=== PATIENT | female | born 1945 | race Caucasian/White ===

== ENCOUNTER → 2024-09-03 07:08 | Outpatient (REF) | payer MEDICARE, OTHER, SELFPAY ==
[2024-09-03 08:32] LABS: % Basophils 0.9 % (0-2); % Eosinophils 4.5 % (0-6); % Immature Granulocytes 0.3 % (0-0.5); % Lymphocytes 33.7 % (20.5-51.1); % Monocytes 9.7 % (1.7-9.3); % Neutrophils 50.9 % (42.2-75.2); Absolute Basophils 0.1 10^3/uL (0-0.2); Absolute Eosinophils 0.3 10^3/uL (0-0.7); Absolute Lymphocytes 2.2 10^3/uL (1.2-3.4); Absolute Monocytes 0.6 10^3/uL (0.1-0.6); Absolute Neutrophils 3.3 10^3/uL (1.4-6.5); Hemoglobin 14.8 g/dL (12.0-16.0); Mean Corp Hgb Conc. 34.4 g/dL (33.0-37.0); Mean Corpuscular Hgb 31.1 pg (27.0-31.0); Mean Corpuscular Volume 90.3 fL (81.0-99.0); Mean Platelet Volume 12.6 fL (7.4-10.4); Nucleated Red Blood Cells % 0 %; Platelet Count 210 10^3/uL (130-400); Red Blood Cell Count 4.76 10^6/uL (4.20-5.40); Red Cell Dist. Width 12.7 % (11.5-14.5); White Blood Cell Count 6.5 10^3/uL (4.8-10.8)
[2024-09-03 09:04] LABS: ALT (SGPT) 32 U/L (0-35); AST (SGOT) 36 U/L (14-36); Albumin 4.2 g/dl (3.5-5.0); Alkaline Phosphatase 119 U/L (38-126); Blood Urea Nitrogen 31 mg/dl (7-17); Calcium 9.9 mg/dl (8.4-10.2); Carbon Dioxide 29 mmol/L (22-30); Chloride 103 mmol/L (98-107); Glucose 97 mg/dl (70-99); HDL Cholesterol 100 mg/dl; LDL Cholesterol, Calculated 98 mg/dl; Potassium 4.6 mmol/L (3.5-5.1); Sodium 140 mmol/L (135-145); Total Bilirubin 0.5 mg/dl (0.2-1.3); Total Cholesterol 209 mg/dl (50-199); Total Protein 6.9 g/dl (6.3-8.2); Triglyceride 59 mg/dl (10-149); Very Low Density Lipoprotein 11 mg/dl (0-30); eGFR > 60.00
[2024-09-03 09:27] LABS: TSH Reflex To Free T4 5.14 uIU/ml (0.47-4.68)
[2024-09-03 09:56] LABS: Free T4 0.95 ng/dl (0.78-2.19)
== END ==
LOC: REG 07:08
PROVIDERS: ATTENDING PHYSICIAN Internal Medicine
DX: R03.0 Elevated blood-pressure reading, without diagnosis of hypertension (principal); I10 Essential (primary) hypertension; E78.00 Pure hypercholesterolemia, unspecified
CPT/HCPCS: 36415; 80053; 80061; 84439; 84443; 85025

== ENCOUNTER → 2024-09-17 13:10 | Outpatient (REF) | payer MEDICARE, OTHER, SELFPAY | LOC: WDC 13:10 | PROVIDERS: ATTENDING PHYSICIAN Internal Medicine | DX: Z12.31 Encounter for screening mammogram for malignant neoplasm of breast (principal) | CPT/HCPCS: 77063; 77067 ==

== ENCOUNTER → 2024-12-27 10:05 | Outpatient (REF) | payer MEDICARE, OTHER, SELFPAY | LOC: HWRAD 10:05 | PROVIDERS: ATTENDING PHYSICIAN Internal Medicine Cardiovascular Disease; FAMILY PHYSICIAN Internal Medicine | DX: I65.22 Occlusion and stenosis of left carotid artery (principal) | CPT/HCPCS: 93880 ==

== ENCOUNTER → 2024-12-31 06:36 | Outpatient (REF) | payer MEDICARE, OTHER, SELFPAY ==
[2024-12-31 07:49] LABS: ALT (SGPT) 33 U/L (0-35); AST (SGOT) 34 U/L (14-36); Albumin 4.5 g/dl (3.5-5.0); Alkaline Phosphatase 113 U/L (38-126); Blood Urea Nitrogen 32 mg/dl (7-17); Calcium 10.1 mg/dl (8.4-10.2); Carbon Dioxide 30 mmol/L (22-30); Chloride 103 mmol/L (98-107); Glucose 94 mg/dl (70-99); HDL Cholesterol 105 mg/dl; LDL Cholesterol, Calculated 94 mg/dl; Potassium 4.4 mmol/L (3.5-5.1); Sodium 138 mmol/L (135-145); Total Bilirubin 0.8 mg/dl (0.2-1.3); Total Cholesterol 212 mg/dl (50-199); Total Protein 7.1 g/dl (6.3-8.2); Triglyceride 65 mg/dl (10-149); Very Low Density Lipoprotein 13 mg/dl (0-30); eGFR > 60.00
[2024-12-31 07:59] LABS: TSH Reflex To Free T4 6.44 uIU/ml (0.47-4.68)
[2024-12-31 08:28] LABS: Free T4 0.84 ng/dl (0.78-2.19)
== END ==
LOC: REG 06:36
PROVIDERS: ATTENDING PHYSICIAN Internal Medicine
DX: E78.00 Pure hypercholesterolemia, unspecified (principal); R79.89 Other specified abnormal findings of blood chemistry
CPT/HCPCS: 36415; 80053; 80061; 84439; 84443

== ENCOUNTER → 2025-03-23 15:42 | Outpatient (REF) | payer MEDICARE, OTHER, SELFPAY ==
[2025-03-23 17:13] LABS: Free T4 0.92 ng/dl (0.78-2.19)
[2025-03-23 17:27] LABS: TSH 1.58 uIU/ml (0.47-4.68)
[2025-03-25 20:18] LABS: Thyroid Peroxidase Ab (TPO) 0.8 IU/mL (0.0-9.0)
== END ==
LOC: RCS 15:42
PROVIDERS: ATTENDING PHYSICIAN Internal Medicine Cardiovascular Disease; FAMILY PHYSICIAN Internal Medicine; REFERRING PHYSICIAN Nurse Practitioner Family
DX: R01.1 Cardiac murmur, unspecified (principal); E04.1 Nontoxic single thyroid nodule
CPT/HCPCS: 36415; 84439; 84443; 86376; 93306

== ENCOUNTER → 2025-03-30 13:14 | Outpatient (REF) | payer MEDICARE, OTHER, SELFPAY ==
[2025-03-30 13:35] VITALS: BP 135/63; BP_SYST 77
== END ==
LOC: RADI 13:14
PROVIDERS: ATTENDING PHYSICIAN Nurse Practitioner Family; FAMILY PHYSICIAN Internal Medicine
DX: E04.1 Nontoxic single thyroid nodule (principal)
CPT/HCPCS: 88173; 10005

== ENCOUNTER → 2025-06-13 08:23 | Outpatient (REF) | payer MEDICARE, OTHER, SELFPAY | LOC: HWRAD 08:23 | PROVIDERS: ATTENDING PHYSICIAN Internal Medicine Cardiovascular Disease; FAMILY PHYSICIAN Internal Medicine | DX: R60.0 Localized edema (principal) | CPT/HCPCS: 93970 ==

== ENCOUNTER 2025-07-21 05:51 | Day surgery (SDC) | payer MEDICARE, OTHER, SELFPAY ==
--- NOTE | 2025-06-15 12:38 | CM ---
Addendum entered by Vicenta Fox RN 06/28/25 10:47:
CM received call from patient regarding her PAT appointments. CM contacted Grisel in admission to contact patient.
Original Note:
Demographics: confirmed
Living situation: lives alone, daughter will stay with patient over night
Support Person Post Operatively: Daughter
History of
VN: No
SNF: No
Outpatient : deciding on provider, will make appointments
Has patient purchased required equipment: encouraged patient to review DME list
PCP: Macho
Pharmacy: [facility]
Post Operative Discharge Plan: Plan for [facility] as patient is SDS, and then transition to Outpatient.
[2025-07-04 09:33] LABS: Hematocrit 41.4 % (37.0-47.0); Hemoglobin 14.1 g/dL (12.0-16.0); Mean Corp Hgb Conc. 34.1 g/dL (33.0-37.0); Mean Corpuscular Volume 90.0 fL (81.0-99.0); Platelet Count 222 10^3/uL (130-400); Red Cell Dist. Width 13.0 % (11.5-14.5)
[2025-07-04 09:54] LABS: ALT (SGPT) 27 U/L (0-35); AST (SGOT) 35 U/L (14-36); Albumin 3.6 g/dl (3.5-5.0); Alkaline Phosphatase 106 U/L (38-126); Blood Urea Nitrogen 23 mg/dl (7-17); Calcium 9.3 mg/dl (8.4-10.2); Carbon Dioxide 27 mmol/L (22-30); Chloride 106 mmol/L (98-107); Glucose 87 mg/dl (70-99); Potassium 4.5 mmol/L (3.5-5.1); Sodium 136 mmol/L (135-145); Total Protein 6.5 g/dl (6.3-8.2); eGFR > 60.00
[2025-07-04 09:56] LABS: Glycohemoglobin (HgbA1c) 5.6 % (4.0-5.6)
[2025-07-04 14:12] VITALS: BMI 26.4
[2025-07-04 14:32] VITALS: BMI 26.4
--- NOTE | 2025-07-12 08:19 | VNURNOTE ---
Patient is scheduled for an elective L TKA on 07/21 - she is a same day patient with Dr Ng. Spoke with patient prior to surgery. Introduced role of [facility] Liaison. Patient reports that she lives alone in a 1 story house. Daughter will assist post
op.
She has a rolling walker.
PCP is Dr Loretta Pritchard.
Discussed [facility] joint protocol and post surgical plans.
Reviewed that she will have VN services initially and will then start outpatient PT.
Patient selects [facility] for [facility] care needs and [facility]. Scheduled for 07/25 .
Patient is in agreement with plan . Advised to bring RW with her day of surgery. [facility] contact number provided. Referral placed in [facility].
Plan: [facility] per [facility] joint protocol 07/21 then outpt PT on 07/25
[2025-07-21] VITALS (11 sets, daily range): BP systolic 122–189; BP diastolic 52–89; BMI 26.4
[2025-07-21] MEDS: CELEBREX 200 MG PO (06:28)
[2025-07-21] MEDS: TYLENOL 650 MG PO (06:28)
[2025-07-21] MEDS: NORMOSOL-R/PLASMALYTE-A 1000 IV (06:28)
[2025-07-21] MEDS: ZOFRAN 4 MG IV (09:49)
[2025-07-21] MEDS: ANCEF 5 IV (10:58)
[2025-07-21] MEDS: COMPAZINE 10 MG IV (11:28)
[2025-07-21] MEDS: TYLENOL 1000 MG PO (14:12)
[2025-07-21] MEDS: TORADOL 15 MG IV (14:40)
[2025-07-21] MEDS: NSS (PRESERVATIVE FREE) 10 ML IV (14:46)
[2025-07-21] MEDS: PROTONIX IV 40 MG IV (14:47)
--- NOTE | 2025-07-21 21:35 | OR.RPT ---
Operative Report
Operative Report
Orthopaedic Surgery Operative Note
DATE OF OPERATION: 07/21/2025
PREOPERATIVE DIAGNOSES: Osteoarthritis, left knee.
POSTOPERATIVE DIAGNOSES: Osteoarthritis, left knee.
OPERATION PERFORMED:
1) Left total knee arthroplasty (CPT 50331)
2) Intraosseous administration of analgesic (CPT 95152)
SURGEON: Jeff Ng MD
ASSISTANTS: Tank Beatty PA-C who helped with patient and limb positioning and retraction
ANESTHESIA: Spinal by anesthesia plus intraoperative infusion of morphine into the tibial metaphysis by Dr. Ng
COMPLICATIONS: None.
ESTIMATED BLOOD LOSS: 20mL
DRAINS: None
TOURNIQUET TIME: 39 minutes.
IMPLANTS:
- Zachary Persona CR Femur, size 10
- Zachary Persona tibia base plate, size E
- Zachary Persona ultracongruent articular surface, 10 mm
- DJO Brea bone cement
INDICATIONS: The patient presented to my office with debilitating left knee pain due to osteoarthritis. We reviewed the natural history of this problem, as well as the risks, benefits, and alternatives of various treatment options. The patient
exhausted all nonoperative treatment options and wished to proceed with knee replacement surgery. The patient understood the risks which included, but were not limited to, bleeding, infection, failure to relieve pain, more pain than preop, damage to
blood vessels and nerves, need for reoperation, mechanical failure of the implants, wound healing problems, stiffness, instability, blood clot, pulmonary embolism, myocardial infarction, pneumonia, arrhythmia, CVA, and . The patient accepted
these risks and wished to proceed. All questions were answered, and informed consent was obtained.
PROCEDURE IN DETAIL: The patient was identified in the preoperative holding area. The left knee was identified as the operative site. The patient was taken in the operating room and placed in a supine position on the operating table. Spinal
anesthesia was performed. IV antibiotics and tranexamic acid were administered. An SCD was placed on the right lower extremity. A well-padded tourniquet was placed on the proximal thigh. All bony prominences were well padded. The left lower
extremity was prepped and draped in the usual sterile fashion.
We performed a surgical time-out. An interarticular block was performed with local anesthetic with epinephrine. The limb was exsanguinated with an Esmarch bandage, then the tourniquet was inflated to 250 mmHg. I performed interosseous administration
of morphine-saline solution via a Jamshidi style intraosseous needle into the proximal medial tibial metaphysis as described by Stefano Leigh MD. This was performed to aid in pain control. A midline skin incision was made followed by a medial
parapatellar arthrotomy. A subperiosteal peel was performed on the medial tibia. I excised part of the infrapatellar fat pad to improve our visualization as well as tissue over anterior femur. The patella was everted and the knee was flexed. I
excised the remnants of the anterior and posterior cruciate ligaments as well as tibial and femoral osteophytes with rongeurs.
The knee was flexed, and the extramedullary tibial cutting guide was aligned. Stanton was aligned at neutral, rotation was centered on the tibial tubercle, and coronal alignment was aligned with the mechanical axis of the tibia and center of the ankle
joint. The cut height was 10mm off the lateral tibia joint surface. The guide was secured into place. The MCL and LCL were protected. The tibia surface was cut. The cut surface was inspected after removal to ensure appropriate height and slope based
on the preoperative plan. The cut was checked with a drop yordan. It was centered nicely at the ankle.
A drill was used to open the femoral canal. The intramedullary distal femoral cutting guide was inserted into the femur. This was set at 5 degrees +0. This was secured into place with three pins. The cut level was checked with an zacarias wing. The
distal femur was cut through the cutting guide. The IM guide was reinserted to double check that the level of resection was flush and in appropriate alignment.
Woodbridge�s line and the transepicondylar axis were marked on the femur. The femoral sizing guide was applied to the anterior femur. Pins were inserted, and the 4-in-1 cutting guide was applied and secured into place. The rotation was compared to
Woodbridge�s line, the transepicondylar axis, and the neutral tibia cut and was found to be appropriate. The width was checked and found to be appropriate and lateralized on the femur. The anterior, posterior, and chamfur cuts were made. A lamina
export freight clerk was used to open the flexion gap, and posterior osteophytes were removed with a curved osteotome. The remnant medial and lateral meniscus were also removed. I prophylactically cauterized the lateral geniculate arteries. A 10mm spacer block
was applied to the flexion gap and was noted to be balanced medially and laterally. The knee was extended, and the block showed symmetric to extension and flexion gaps.
The tibia was exposed and sized. Rotation was set in line with the tibial tubercle and congruent with the femur. The trial was secured into place with two pins. The trial femur was impacted into place, and a trial articular surface was placed. The
knee was taken through range of motion and noted to be stable throughout the arc of motion without gaping or excess tension. The patella was noted to track centrally throughout the arc of motion without need for further releases. No full thickness
cartilage changes.
The trials were removed. The tibia keel was prepared with the punch and the drill. The bone surfaces were irrigated with sterile saline and dried. The cement was mixed in a vacuum mixer. Cement gun was used to apply cement to the tibial surface and
the undersurface of the tibial implant. Cement was pressurized into the tibial canal and tibia surface. The tibial component was impacted into place. Excess cement was removed. Cement was applied to the femoral surface and the femoral component. The
femoral component was impacted into place, and excess cement removed. A trial articular surface was inserted, and the knee was extended while the cement polymerized. The tourniquet was let down, and meticulous hemostasis was achieved. Dilute
betadine was poured into the wound and allowed to soak for 3 minutes. The knee was irrigated with copious normal saline.
Once the cement was polymerized, the trial articular surface was removed. Any excess cement was removed. The knee was trialed, and the final articular surface was selected and inserted into the tibial locking mechanism. The knee was reduced. A fresh
drape was applied to the surgical field.
The arthrotomy was closed with 0-PDS. Once closed, an interarticular block was performed with local anesthetic with epi. The deep dermal layer was closed with 2-0 PDS, and the subcuticular skin was closed with 3-0 monocryl. A skin glue dressing was
applied to the skin in full flexion. Once this was completely dry, a sterile waterproof dressing was applied.
The anesthesia team performed an adductor canal block in the OR. The patient awoke from anesthesia without any difficulties. The sponge and instrument counts were correct x2 at the end of the case.
Sanford Ng MD
== END 2025-07-21 14:55 | disposition home health service (06) ==
LOC: SDS 05:51
PROVIDERS: ATTENDING PHYSICIAN Orthopaedic Surgery; FAMILY PHYSICIAN Internal Medicine; REFERRING PHYSICIAN Internal Medicine Cardiovascular Disease
DX: M17.12 Unilateral primary osteoarthritis, left knee (principal)
CPT/HCPCS: 27447; C1776; 36415; 73560; 80053; 83036; 85027; 87070; 93005; 97162

== ENCOUNTER 2025-07-25 10:51 | Emergency (ER) | payer MEDICARE, OTHER, SELFPAY ==
[2025-07-25] VITALS (9 sets, daily range): BP systolic 143–179; BP diastolic 56–81; PULSE 80–90
[2025-07-25 11:32] LABS: Hematocrit 39.3 % (37.0-47.0); Hemoglobin 13.1 g/dL (12.0-16.0); Mean Corp Hgb Conc. 33.3 g/dL (33.0-37.0); Mean Corpuscular Volume 88.3 fL (81.0-99.0); Nucleated Red Blood Cells % 0 %; Platelet Count 287 10^3/uL (130-400); Red Cell Dist. Width 13.0 % (11.5-14.5)
[2025-07-25 11:42] LABS: ALT (SGPT) 30 U/L (0-35); AST (SGOT) 34 U/L (14-36); Albumin 3.9 g/dl (3.5-5.0); Alkaline Phosphatase 88 U/L (38-126); Blood Urea Nitrogen 32 mg/dl (7-17); Calcium 9.5 mg/dl (8.4-10.2); Carbon Dioxide 31 mmol/L (22-30); Chloride 95 mmol/L (98-107); Glucose 109 mg/dl (70-99); Potassium 4.7 mmol/L (3.5-5.1); Sodium 129 mmol/L (135-145); Total Protein 6.8 g/dl (6.3-8.2); eGFR > 60.00
[2025-07-25 11:56] LABS: Troponin I < 0.012 ng/ml
[2025-07-25] MEDS: NSS 1000 IV (13:57)
--- NOTE | 2025-07-25 15:51 | ED.GENMED ---
History of Present Illness
General
Chief Complaint: Fainting/Passed Out
Source: patient
Exam Limitations: none
Time Seen by Provider: 07/25/25 13:31
Nursing documentation reviewed up to this point in time: agreed with
History of Present Illness
History of Present Illness:
80-year-old female with history hypertension, hyperlipidemia who presents to the emergency department today after syncopal event at physical therapy. Patient had a left total knee replacement this past . She was at her first physical therapy
appt this morning, seated during the intake when she began feeling very lightheaded and briefly experienced tunnel vision prior to passing out.
She was apparently unconscious for only a few seconds. She did not sustain any injuries. Patient denies any preceding chest pain, shortness of breath, headache or dizziness.
She states that she only had 2 rice crackers, a yogurt, and 2 cups of coffee prior to PT. She also took an oxycodone and her blood pressure medication.
Patient states that she has not been eating/ drinking much since surgery
Review of Systems
Review of Systems
Allergies reviewed?: Yes
All Other Systems: ROS reviewed and negative except as documented in HPI and ROS
Phy Exam
Physical Exam
Physical Exam:
Vitals: Hypertensive, otherwise vital signs are stable
General: Patient is well appearing, no acute distress. Nontoxic appearing
Skin: Warm and dry. Well healing vertically oriented incision of left knee with surrounding ecchymosis. No purulent drainage or significant surrounding erythema.
Head: Normocephalic, atraumatic
Eyes: Sclera nonicteric. EOMs intact. No nystagmus.
Throat: Protecting airway
Neck: Normal ROM, no cervical spine tenderness, no meningismus
Cardiac: Regular rate and rhythm, no murmurs.
Pulm: Normal respiratory effort, no wheezes, rales, rhonchi heard on exam
.
Abdomen: Abdomen soft and nontender
Extremities: Surgical incision of left knee as above. No calf tenderness in LLE. 2+ palpable L DP pulse.
Neuro: AAOx3. Grossly intact.
Psychiatric: Normal affect.
Course
Orders/Labs/Results
Orders:
Orders
07/25/25 10:57
Electrocardiogram (*1) Urgent
Reason for Study: Syncope
CT Head W/o Iv Contrast Urgent
Comment:
Reason For Exam: syncopal event
07/25/25 10:58
EKG- Treatment ONCE
07/25/25 11:14
Complete Blood Count/With Diff Urgent
Comprehensive Metabolic Panel Urgent
Troponin I Urgent
07/25/25 13:45
Orthostatic VS- Treatment ONCE
0.9% Sodium Chloride 1000 ml [Nss] 1,000 ml IV BOLUS
Abnormal Lab Results
07/25/25
11:14
WBC 11.7 H 10^3/uL
(4.8-10.8)
MPV 11.6 H fL
(7.4-10.4)
Abs Immat Gran (auto) 0.1 H 10^3/uL
(0-0.05)
Absolute Neuts (auto) 6.6 H 10^3/uL
(1.4-6.5)
Absolute Lymphs (auto) 3.9 H 10^3/uL
(1.2-3.4)
Absolute Monos (auto) 1.0 H 10^3/uL
(0.1-0.6)
Immature Gran % 0.8 H %
(0-0.5)
Sodium 129 L mmol/L
(135-145)
Chloride 95 L mmol/L
(98-107)
Carbon Dioxide 31 H mmol/L
(22-30)
BUN 32 H mg/dl
(7-17)
Glucose 109 H mg/dl
(70-99)
07/25/25 11:14
07/25/25 11:14
Vital Signs
Initial and Last Documented VS:
Initial Vital Signs
Temp Pulse Resp BP Pulse Ox
98.0 F 61 20 154/68 98
07/25/25 10:53 07/25/25 10:53 07/25/25 10:53 07/25/25 10:53 07/25/25 10:53
Last Documented Vital Signs
Temp Pulse Resp BP Pulse Ox
98.0 F 79 24 154/64 97
07/25/25 10:53 07/25/25 16:15 07/25/25 16:15 07/25/25 16:00 07/25/25 15:52
MDM/Problems Addressed
Differential Diagnosis Includes:
Not limited to: acute dehydration, orthostatic hypotension, vasovagal syncppe, medication side effect, much less likely cardiac arrythmia, etc
MDM/Problems Addressed:
The patient is a 80-year-old female, 4 days status post left total knee arthroplasty, who presented to the ED following a syncopal episode that occurred while sitting during physical therapy. There was no reported head trauma, seizure activity, or
prolonged loss of consciousness. She denied chest pain, palpitations, shortness of breath, or neurological deficits.
Initial evaluation included ECG, labs (CBC, CMP, troponin), and orthostatic vital signs.
ECG showed normal sinus rhythm with no acute ischemic changes. Labs revealed mild dehydration with hyponatremia and elevation in BUN. Troponin was negative. Orthostatic vitals were normal. No evidence of infection or PE was found.
She did take her antihypertensives and oxycodone prior to PT, both of which may contribute to hypotension and decreased oral intake. No concerning arrhythmias were identified.
Given the likely multifactorial etiology�dehydration, medication effects, and recent postoperative status�the patient was monitored in the ED, given IV fluids and showed clinical improvement. She remained hemodynamically stable, with no recurrence
of symptoms, and was ambulating at post-operative baseline.
Feel stable for discharge with instructions for increased oral fluid intake, close outpatient follow-up, and medication adjustments as needed. Return precautions discussed.
Chronic conditions affecting care:
HTN
Acute Exacerbation and/or Progression of Chronic Illness:
Acutely hypertensive
*Radiology
Radiology exam reviewed: radiology read reviewed
*Pulse Oximetry
SaO2: 97
Oxygen Mode of Delivery: Room air
Patient hypoxic: no
*EKG
Interpreted by ED Provider?: Yes
EKG Intrepretation Date: 07/25/25
Interpretation: normal
Comparison EKG: changes noted
Heart Rate: 58
Rate: bradycardiac
Rhythm: sinus
Temple: normal axis
Interval: normal QT interval
QRS Pattern: normal QRS
Ischemia: no ischemia
*Sports Equipment Repairer Interpretation
Rate: normal
Interpretation: normal
Heart Rate: 66
Rhythm: sinus
*Critical Care Note
Total Time (30-74mins, 75-104mins- exclusive of procedures): Not Applicable
ED Attending Note
-
Portions of this chart may have been created with voice recognition software.� Occasional wrong word or��sound alike� substitutions may have occurred due to the inherent limitations of voice recognition software.
Discharge Plan
Departure
Patient Disposition: Home (Routine Discharge)
Date of Disposition: 07/25/25
Time of Disposition: 16:08
Patient with high blood pressure during this ER visit?: Yes
Condition: Good
Discharge Problem:
Syncope, Hyponatremia
Instructions: Syncope (Fainting) (DC), BLOOD PRESSURE
Prescriptions:
No Action
atorvastatin [Lipitor] 20 mg Tablet
20 mg PO HS
multivitamin Tablet
1 tab PO HS
Mag-Well
1 cap PO DAILY PRN (Reason: electrolyte replacement)
calcium
1 tab PO BID
mupirocin 2 % ointment
1 applic topical BID Qty: 1 0RF
Patient Comments:
started treatment friday07/18/25 and completed BID, last took at home 07/21/25 in am
celecoxib 200 mg capsule
200 mg PO DAILY Qty: 14 0RF
Rx Instructions:
*POST-OP USE ONLY
*take with food
famotidine 20 mg tablet
20 mg PO HS Qty: 30 0RF
Rx Instructions:
post-op
dexamethasone 4 mg tablet
4 mg PO BID Qty: 6 0RF
Rx Instructions:
take with food
post-op use only
gabapentin 300 mg capsule
300 mg PO HS Qty: 10 0RF
Rx Instructions:
*POST-OP USE ONLY
ondansetron 4 mg tablet,disintegrating
4 mg PO Q6H PRN (Reason: n/v) Qty: 20 0RF
Rx Instructions:
take 1/2h b/f pain med if recurrent nausea
allow to dissolve in mouth w/o water
oxycodone 5 mg tablet
5 mg PO Q6H PRN (Reason: 1 tab moderate pain, 2 tabs severe pain) Qty: 30 0RF
Rx Instructions:
Ongoing therapy
POST-OP USE ONLY
docusate sodium [Colace] 100 mg capsule
100 mg PO BID Qty: 30 0RF
sennosides [senna] 8.6 mg tablet
17.2 mg PO BID Qty: 30 0RF
aspirin 325 mg tablet
325 mg PO DAILY Qty: 30 0RF
Rx Instructions:
Take daily x4 weeks for blood clot prevention.
magnesium hydroxide [Milk of Magnesia] 400 mg/5 mL suspension
30 ml PO HS PRN (Reason: constipation) Qty: 355 0RF
Rx Instructions:
Add to bowel regimen of Colace and Senna should no bowel movement occur within 48 hours post-surgery.
valsartan 80 mg Tablet
80 mg PO DAILY Qty: 1 0RF
Rx Instructions:
HOLD IF systolic blood pressure <130 while on post-surgical narcotics.
acetaminophen 500 mg Tablet
1,000 mg PO Q6H Qty: 60 0RF
Rx Instructions:
DO NOT exceed >4000 mg daily.
Referrals:
UNKNOWN - PT DOES,NOT KNOW [Family Provider]
Activity Restrictions/Additional Instructions:
RETURN TO THE EMERGENCY DEPARTMENT WITH ANY CHEST PAIN, SHORTNESS OF BREATH, DIZZINESS/LIGHTHEADEDNESS, SIGNS OF SEVERE DEHYDRATION, REPEAT FAINTING EPISODES, WORSENING IN CURRENT SYMPTOMS, OR ANY OTHER CONCERNS
- As discussed�your lab work showed a low sodium level. This is likely secondary to dehydration. You were given a liter of IV fluids today however please follow-up with your PCP to ensure this lab work is repeated
- It is important to stay well-hydrated and follow a balanced diet. Continue to take your medications as prescribed although please follow with your primary care to ensure you are on an appropriate blood pressure regimen.
- Follow-up with orthopedic/PT for further postoperative management.
Monitor your symptoms closely and return to the emergency department with any acute worsening/new symptoms or any other concerns
Interventions
Interventions:
*Risk Screen - Suicide Last Done: 07/25/25 12:02
*General Assessment Last Done: 07/25/25 10:53
*Neglect/Abuse Screening Last Done: 07/25/25 12:02
*ED- Fall Risk Assessment Last Done: 07/25/25 12:02
*ED COVID-19 Vaccine History Last Done: 07/25/25 12:02
*ED Influenza Vaccine History Last Done: 07/25/25 12:02
*Nursing Disposition Last Done: 07/25/25 16:36
ED- Neurological Assessment Last Done: 07/25/25 12:02
ED- Cardiac Assessment Last Done: 07/25/25 12:02
Discharge Date and Time
Discharge Date/Time: 07/25/25 16:37
Print Language: SERBIAN
== END 2025-07-25 16:37 | disposition home or self-care (01) ==
LOC: EMR 10:51
PROVIDERS: Student in an Organized Health Care Education/Training Program; EMERGENCY PHYSICIAN Emergency Medicine
DX: R55 Syncope and collapse (principal); E87.1 Hypo-osmolality and hyponatremia; E86.0 Dehydration; I10 Essential (primary) hypertension; E78.5 Hyperlipidemia, unspecified; Z96.652 Presence of left artificial knee joint
CPT/HCPCS: 99284; 96360; 70450; 80053; 84484; 85025; 93005

== ENCOUNTER 2025-08-18 14:02 | Outpatient (RCR) | payer MEDICARE, OTHER, SELFPAY ==
--- NOTE | 2025-07-11 12:05 | VNURNOTE ---
Patient is scheduled for an elective L TKA on 07/21 - she is a same day patient with Dr Ng. Spoke with patient prior to surgery. Introduced role of [facility] Liaison. Patient reports that she lives alone in a one story home.
She has a cane and rolling walker.
PCP is Dr Loretta Pritchard
Discussed [facility] joint protocol and post surgical plans.
Reviewed that she will have VN services initially and will then start outpatient PT.
Patient selects [facility] for home care needs [facility]. Scheduled for 07/25 .
Patient is in agreement with plan and states that he daughters will be home with her. Advised to bring RW with her day of surgery. [facility] contact number provided. Referral placed in [facility].
Plan: [facility] per [facility] joint protocol 07/21 then outpt PT on 07/25
== END 2025-08-18 23:59 | disposition home or self-care (01) ==
LOC: RPT 14:02
PROVIDERS: ATTENDING PHYSICIAN Orthopaedic Surgery; FAMILY PHYSICIAN Internal Medicine
DX: Z47.1 Aftercare following joint replacement surgery (principal); Z73.6 Limitation of activities due to disability; R26.2 Difficulty in walking, not elsewhere classified; M62.81 Muscle weakness (generalized); M25.562 Pain in left knee; Z96.652 Presence of left artificial knee joint
CPT/HCPCS: 97010; 97110; 97112; 97161; 97530

== ENCOUNTER → 2025-09-08 07:00 | Outpatient (REF) | payer MEDICARE, OTHER, SELFPAY ==
[2025-09-08 07:36] LABS: Hematocrit 43.0 % (37.0-47.0); Hemoglobin 14.3 g/dL (12.0-16.0); Mean Corp Hgb Conc. 33.3 g/dL (33.0-37.0); Mean Corpuscular Volume 90.0 fL (81.0-99.0); Nucleated Red Blood Cells % 0 %; Platelet Count 263 10^3/uL (130-400); Red Cell Dist. Width 13.1 % (11.5-14.5)
[2025-09-08 07:53] LABS: ALT (SGPT) 25 U/L (0-35); AST (SGOT) 29 U/L (14-36); Albumin 4.3 g/dl (3.5-5.0); Alkaline Phosphatase 117 U/L (38-126); Blood Urea Nitrogen 22 mg/dl (7-17); Calcium 10.1 mg/dl (8.4-10.2); Carbon Dioxide 31 mmol/L (22-30); Chloride 100 mmol/L (98-107); Glucose 97 mg/dl (70-99); HDL Cholesterol 83 mg/dl; LDL Cholesterol, Calculated 111 mg/dl; Potassium 4.8 mmol/L (3.5-5.1); Sodium 135 mmol/L (135-145); Total Protein 7.3 g/dl (6.3-8.2); Very Low Density Lipoprotein 19 mg/dl (0-30); eGFR > 60.00
== END ==
LOC: REG 07:00
PROVIDERS: ATTENDING PHYSICIAN Internal Medicine; REFERRING PHYSICIAN Nurse Practitioner Family
DX: E78.5 Hyperlipidemia, unspecified (principal); R03.0 Elevated blood-pressure reading, without diagnosis of hypertension
CPT/HCPCS: 36415; 80053; 80061; 84443; 85025

== ENCOUNTER 2025-09-14 07:14 | Outpatient (RCR) | payer MEDICARE, OTHER, SELFPAY | END 2025-09-14 23:59 | disposition home or self-care (01) | LOC: RPT 07:14 | PROVIDERS: ATTENDING PHYSICIAN Orthopaedic Surgery; FAMILY PHYSICIAN Internal Medicine | DX: Z47.1 Aftercare following joint replacement surgery (principal); Z73.6 Limitation of activities due to disability; R26.2 Difficulty in walking, not elsewhere classified; M62.81 Muscle weakness (generalized); M25.562 Pain in left knee; Z96.652 Presence of left artificial knee joint | CPT/HCPCS: 97110; 97112; 97140; 97530 ==

== ENCOUNTER 2025-09-22 09:32 | Outpatient (RCR) | payer MEDICARE, OTHER, SELFPAY | END 2025-09-22 12:40 | disposition home or self-care (01) | LOC: RPT 09:32 | PROVIDERS: ATTENDING PHYSICIAN Orthopaedic Surgery; FAMILY PHYSICIAN Internal Medicine | DX: Z47.1 Aftercare following joint replacement surgery (principal); Z73.6 Limitation of activities due to disability; R26.2 Difficulty in walking, not elsewhere classified; M62.81 Muscle weakness (generalized); M25.562 Pain in left knee; Z96.652 Presence of left artificial knee joint | CPT/HCPCS: 97110; 97112 ==